=== PATIENT | female | born 1995 | race Caucasian/White ===

== ENCOUNTER 2020-01-26 10:16 | Emergency (ER) | payer OTHER ==
[~2020-01-26] VITALS: Ht 154.9 cm; Wt 63.0 kg
[2020-01-26] MEDS ORDERED: triamcinolone acetonide 40mg/ml inj IM ONE (11:50)
[2020-01-26] MEDS ORDERED: PRED20TA PO (11:50)
[2020-01-26 12:10] VITALS: BP 93/68
== END 2020-01-26 12:10 | disposition home or self-care (01) ==
LOC: ER 10:16
DX: L23.7 Allergic contact dermatitis due to plants, except food (principal); R21 Rash and other nonspecific skin eruption; Z79.899 Other long term (current) drug therapy
CPT/HCPCS: 96372; 99283; J3301